=== PATIENT | female | born 1965 | race African-American/Black ===

== ENCOUNTER 2021-03-02 13:15 | Emergency (ER) | payer OTHER ==
[2021-03-02 13:31] VITALS: BP 144/89; PULSE 87; TEMP 98.3; BMI 33.6
== END 2021-03-02 15:50 | disposition home or self-care (01) ==
LOC: JER 13:15
DX: R42 Dizziness and giddiness (principal)
CPT/HCPCS: 93005; 93010; 99283-25

== ENCOUNTER 2021-08-08 10:27 | Emergency (ER) | payer OTHER ==
[2021-08-08 10:35] VITALS: BMI 25.0
[2021-08-08 12:35] LABS: BASO % 1.1 % (0-2.0); EOS % 0.8 % (0-4.5); HEMATOCRIT 41.2 % (32.4-45.2); HEMOGLOBIN 14.1 GM/dL (10.7-15.3); LYMPH % 47.2 % (8-40); MCHC 34.3 g/dl (32.0-36.0); MEAN CELL VOLUME 90.4 fl (80-96); MEAN PLT VOLUME 7.7 fl (7.5-11.1); MONO % 6.9 % (3.8-10.2); PLATELET COUNT 263 10^3/uL (134-434); RBC 4.56 M/mm3 (3.60-5.2); RDW 13.1 % (11.6-15.6)
[2021-08-08 13:04] LABS: CHLORIDE 107 mmol/L (98-107); SODIUM 134 mmol/L (136-145)
[2021-08-08 13:06] LABS: CALCIUM 9.5 mg/dL (8.5-10.1)
[2021-08-08 13:07] LABS: ALBUMIN 3.8 g/dl (3.4-5.0); CO2 25 mmol/L (21-32); GLUCOSE,RANDOM 70 mg/dL (74-106)
[2021-08-08 13:10] LABS: URINE APPEARANCE CLEAR; URINE BILIRUBIN NEGATIVE (NEGATIVE); URINE COLOR YELLOW; URINE GLUCOSE (UA) NEGATIVE (NEGATIVE); URINE KETONE NEGATIVE (NEGATIVE); URINE LEUK ESTERASE NEGATIVE (NEGATIVE); URINE NITRITE NEGATIVE (NEGATIVE); URINE PROTEIN NEGATIVE (NEGATIVE); URINE UROBILINOGEN 0.2 mg/dL (0.2-1.0)
[2021-08-08 13:11] LABS: BILIRUBIN,TOTAL 0.5 mg/dL (0.2-1); TOT PROT 8.2 g/dl (6.4-8.2)
[2021-08-08 13:13] LABS: ALK PHOS 49 U/L (45-117)
[2021-08-08 13:14] LABS: ANION GAP 2 MMOL/L (8-16); SGOT/AST 103 U/L (15-37); SGPT/ALT 36 U/L (13-61)
[2021-08-08 16:24] LABS: BLOOD UREA NITROGEN 14.6 mg/dL (7-18); CALCIUM 9.7 mg/dL (8.5-10.1)
[2021-08-08 16:27] LABS: CREATININE 0.9 mg/dL (0.55-1.3)
[2021-08-08 17:37] VITALS: BP 137/89; PULSE 73; TEMP 97.7
== END 2021-08-08 16:45 | disposition home or self-care (01) ==
LOC: JER 10:27
PROC: 3E0337Z Introduction of Electrolytic and Water Balance Substance into Peripheral Vein, Percutaneous Approach (ICD-10-PCS; principal; 2021-08-08)
DX: R53.1 Weakness (principal)
CPT/HCPCS: 36415; 80048; 80053; 81003; 83880; 85025; 87086; 93005; 93010; 96360; 99284-25

== ENCOUNTER 2023-09-14 14:22 | Observation (INO) | payer OTHER ==
[2023-09-14] MEDS ORDERED: LACTATED RINGERS SOLUTION 1000 ML INFUS.BAG IV ONE (15:06)
[2023-09-14] MEDS ORDERED: ONDANSETRON 4 MG/2 ML VIAL IVPUSH ONE (15:06)
[2023-09-14] MEDS ORDERED: FAMOTIDINE 20 MG/50 ML IVPB 20 MG/50 ML MG IVPB ONE ×2 (15:06→16:30)
[2023-09-14] MEDS ORDERED: MAG HYDROX/AL HYDROX/SIMETH 30 ML UNIT-DOSE CUP PO ONE (15:06)
[2023-09-14 16:09] LABS: BASO % 0.3 % (0-2.0); EOS % 0.1 % (0-4.5); HEMATOCRIT 45.7 % (32.4-45.2); HEMOGLOBIN 15.5 GM/dL (10.7-15.3); LYMPH % 9.4 % (8-40); MCH 29.9 pg (25.7-33.7); MCHC 33.8 g/dl (32.0-36.0); MEAN CELL VOLUME 88.4 fl (80-96); MEAN PLT VOLUME 7.1 fl (7.5-11.1); MONO % 5.1 % (3.8-10.2); NEUT % 85.1 % (42.8-82.8); PLATELET COUNT 318 10^3/uL (134-434); RBC 5.17 M/mm3 (3.60-5.2); RDW 13.6 % (11.6-15.6)
[2023-09-14 16:16] LABS: INR 1.13 (0.83-1.09); PROTHROMBIN TIME (PATIENT) 13.1 SEC (9.7-13.0)
[2023-09-14 16:18] LABS: ACTIVATED PTT 32.2 SECONDS (25.2-36.5)
[2023-09-14 16:26] LABS: POTASSIUM 4.4 mmol/L (3.5-5.1)
[2023-09-14 16:28] LABS: ALBUMIN 4.3 g/dl (3.4-5.0); CALCIUM 10.5 mg/dL (8.5-10.1)
[2023-09-14 16:29] LABS: MAGNESIUM 2.3 mg/dL (1.8-2.4)
[2023-09-14] MEDS ORDERED: MAG HYDROX/AL HYDROX/SIMETH 30 ML UNIT-DOSE CUP ONE (16:30)
[2023-09-14] MEDS ORDERED: ONDANSETRON 4 MG/2 ML VIAL ONE (16:31)
[2023-09-14 16:32] LABS: CREATININE 1.1 mg/dL (0.55-1.3)
[2023-09-14 16:33] LABS: BILIRUBIN,TOTAL 0.9 mg/dL (0.2-1); TOT PROT 8.4 g/dl (6.4-8.2)
[2023-09-14] MEDS ORDERED: SODIUM CHLORIDE 0.9% 500 ML INFUS.BAG IV ONE (17:51)
[2023-09-14] MEDS ORDERED: SODIUM CHLORIDE 1,000 ML IV STA (23:59)
[2023-09-15 02:44] VITALS: BMI 31.8
[2023-09-15] MEDS ORDERED: PANTOPRAZOLE 20 MG TABLET PO SCH (07:00)
[2023-09-15 08:14] LABS: BASO % 0.5 % (0-2.0); EOS % 0.5 % (0-4.5); HEMATOCRIT 36.1 % (32.4-45.2); LYMPH % 31.4 % (8-40); MCH 29.7 pg (25.7-33.7); MCHC 33.3 g/dl (32.0-36.0); MEAN CELL VOLUME 89.2 fl (80-96); MEAN PLT VOLUME 7.6 fl (7.5-11.1); MONO % 12.6 % (3.8-10.2); PLATELET COUNT 224 10^3/uL (134-434); RBC 4.04 M/mm3 (3.60-5.2); RDW 13.4 % (11.6-15.6); WHITE BLOOD COUNT 2.9 K/mm3 (4.0-10.0)
[2023-09-15 08:15] LABS: POTASSIUM 4.3 mmol/L (3.5-5.1)
[2023-09-15 08:25] LABS: BLOOD UREA NITROGEN 13.8 mg/dL (7-18); MAGNESIUM 2.4 mg/dL (1.8-2.4)
[2023-09-15 08:27] LABS: BILIRUBIN,DIRECT 0.2 mg/dL (0.0-0.2); CREATININE 0.9 mg/dL (0.55-1.3)
[2023-09-15 08:28] LABS: PHOSPHOROUS 2.9 mg/dL (2.5-4.9)
[2023-09-15 08:29] LABS: BILIRUBIN,TOTAL 0.6 mg/dL (0.2-1)
[2023-09-15 08:37] LABS: ALBUMIN 3.1 g/dl (3.4-5.0); CALCIUM 8.3 mg/dL (8.5-10.1); TOT PROT 6.1 g/dl (6.4-8.2)
[2023-09-15] MEDS ORDERED: LOSARTAN POTASSIUM 25 MG TABLET PO SCH (10:00)
[2023-09-15] MEDS ORDERED: ASPIRIN COATED 81 MG TABLET.EC PO SCH (10:00)
[2023-09-15] MEDS ORDERED: SOLIFENACIN SUCCINATE 5 MG TAB PO SCH (10:00)
[2023-09-15 14:23] VITALS: RESP 18
[2023-09-15 14:40] VITALS: BP 121/69; TEMP 98.9
[2023-09-15] MEDS ORDERED: PATIENT'S OWN MEDICATION (NON-FORMULARY) (Famotidine [Pepcid] 40 MG Tablet) PO PRN (15:47)
[2023-09-15] MEDS ORDERED: FAMOTIDINE 40 MG TABLET PO PRN (16:09)
[2023-09-15] MEDS ORDERED: ATORVASTATIN CA 10 MG TABLET (FP) PO SCH (22:00)
[2023-09-16 07:33] VITALS: PULSE 132
== END 2023-09-15 16:10 | disposition home or self-care (01) ==
LOC: JER 14:22 → JERBED 21:02 → J4S 09-15 02:57
PROVIDERS: ADMIT Internal Medicine; ATTEND Internal Medicine
PROC: 3E033GC Introduction of Other Therapeutic Substance into Peripheral Vein, Percutaneous Approach (ICD-10-PCS; principal; 2023-09-14)
PROC: 3E0337Z Introduction of Electrolytic and Water Balance Substance into Peripheral Vein, Percutaneous Approach (ICD-10-PCS; 2023-09-14)
DX: R00.0 Tachycardia, unspecified (principal); R11.2 Nausea with vomiting, unspecified; I10 Essential (primary) hypertension; R42 Dizziness and giddiness; R19.7 Diarrhea, unspecified; E86.0 Dehydration
CPT/HCPCS: 36415; 71045-TC-FY; 80048; 80053; 80076; 83690; 83735; 84100; 84439; 84443; 84484; 85025; 85379; 85610; 85730; 93005; 93010; 93306-TC; 96361; 96365; 96375; 99285-25; G0378